=== PATIENT | female | born 1990 | race Caucasian/White ===

== ENCOUNTER 2016-10-24 18:31 | Emergency (ER) | payer OTHER ==
[~2016-10-24] VITALS: Ht 165.1 cm; Wt 86.0 kg
[2016-10-24 19:05] VITALS: Ht 165.1 cm; Wt 86.0 kg
[2016-10-24] MEDS ORDERED: HYDROCODONE/APAP (5/325) TAB PO ONE (20:00)
--- NOTE | 2016-10-24 20:13 | ERD ---
ER Documentation Chief Complaint Date/Time DATE: 10/24/16 TIME: 20:11 Chief Complaint headache since last night HPI This is a 26-year-old female presenting to the emergency room complaining of a frontal and temporal headache since last night. Patient states the pain is severe. Patient states that she has a history of headaches and 3 years ago she had imaging done and someone has told her that she has a benign cyst in her head. Patient presents asking for ct imaging since she has a history and she states that her aunt has brain cancer. Patient states that she has been under a lot of stress right lately she describes the pain as a tight band around her head. She denies any nausea, vomiting. She admits to having photophobia. She denies any other neuro deficits. Patient states that she took 1200 mg of ibuprofen at 1 PM and another 1200 mg of ibuprofen at 4 PM. ROS All systems reviewed and are negative except as per history of present illness. Medications Home Meds Active Scripts Acetaminophen* (Tylenol*) 325 Mg Tablet, 2 TAB PO Q6 Y for PAIN AND OR ELEVATED TEMP, #30 TAB Prov:CARLIE CARIAS PA-C 10/24/16 Allergies Allergies: Coded Allergies: No Known Drug Allergies (Verified Allergy, Unknown, 10/24/16) PMhx/Soc Medical and Surgical Hx: pt denies Surgical Hx History of Surgery: No Anesthesia Reaction: No Hx Neurological Disorder: No (benign cyst in the brain) Hx Respiratory Disorders: No Hx Cardiac Disorders: No Hx Psychiatric Problems: No Hx Miscellaneous Medical Probl: No Hx Alcohol Use: Yes (occasional) Hx Substance Use: No Hx Tobacco Use: No Physical Exam Vitals Vital Signs Date Time Temp Pulse Resp B/P Pulse Ox O2 Delivery O2 Flow Rate FiO2 10/24/16 19:05 97.6 75 20 119/65 99 Physical Exam GENERAL: well-developed/well-nourished, in no apparent distress, non-toxic appearing HENT: NC/AT, bilateral tympanic membrane is normal with good cone of light, nares patent, oropharynx clear without exudates EYES: Conjunctiva normal, PERRLA, EOMI, no nystagmus noted NECK: Supple, no lymphadenopathy PULM: CTA bilaterally, no rales, rhonchi, or wheezing heard CV: Normal S1S2, RRR, good capillary refill GI: Soft, non-distended, normal bowel sounds, non-tender BACK: No midline tenderness, no masses, No CVAT EXT: No clubbing, cyanosis, or edema NEURO: Alert and orientated to person, place, and time. CN II-IIX intact. Gait and coordination were normal. Hand newspaper correspondent strength were equal and within normal limits SKIN: Intact, normal turgor PSYCH: Normal mood and mentation, patient denied SI Results 24 hrs Laboratory Tests Test 10/24/16 20:59 Bedside Urine Blood Trace-intact Bedside Urine Glucose (UA) Negative Bedside Urine Ketones (LAB) Trace Bedside Urine Leukocyte Esterase (L Negative Bedside Urine Nitrite (LAB) Negative Bedside Urine Protein (LAB) Negative Bedside Urine pH (LAB) 6.0 Current Medications Medications (Trade) Dose Ordered Sig/Teresa Route PRN Reason Start Time Stop Time Status Last Admin Dose Admin Acetaminophen/ Hydrocodone Bitart (Flanagan (5/325)) 1 tab ONCE ONCE PO 10/24/16 20:00 10/24/16 20:01 DC 10/24/16 20:44 Procedures/MDM This is a 26-year-old female presenting to the emergency room complaining of a frontal and temporal headache since last night. Patient states the pain is severe. Patient states that she has a history of headaches and 3 years ago she had imaging done and someone has told her that she has a benign cyst in her head. Patient presents asking for ct imaging since she has a history and she states that her aunt has brain cancer. Patient states that she has been under a lot of stress right lately she describes the pain as a tight band around her head. This is most likely a tension headache however due to her history and patient's request of a CT, a CT of the head was done. I discussed the risks and the benefits, I discussed the patient had a normal neurological exam and I highly doubt any acute emergent pathology however she insisted on getting a CT of the head. CT of the head: 1. High attenuation nodule in the midline, likely in the anterior portion of the third ventricle consistent with a colloid cyst. Correlation with MRI should be considered. 2. No hydrocephalus. 3. Otherwise unremarkable noncontrast CT scan of the brain. Dr. Sykes the radiologist called me regarding this patient and suggested for me to do an MRI today of the head, I have discussed this case with my supervising physician Dr. Read who stated that it was okay to do an MRI head. Non-contrast MRI of the head was done and radiologist stated: 1. 8 mm AP by 6 mm transverse by 6 mm in superior inferior dimension anterior third ventricular proteinaceous nodule compatible with colloid cyst. Recommend follow-up MR imaging with contrast to further evaluate. 2. No evidence for acute intracranial infarcts, hemorrhage, or hydrocephalous. I have low suspicion for subarachnoid hemorrhage, meningitis, stroke.Patient was given 5/325mg Flanagan with some improvement. I have given patient a lengthy discussion to not take more than the ibuprofen dose. A prescription for Tylenol was provided. Discussed to follow-up with neurologist tomorrow. Discussed return the ER for any worsening signs or symptoms. Patient understands and agrees with this plan Departure Diagnosis: Primary Impression: Colloid cyst of brain Additional Impression: Headache Headache type: tension-type Headache chronicity pattern: acute headache Intractability: intractable Qualified Code: G44.201 - Acute intractable tension-type headache Condition: Stable CARLIE CARIAS PA-C Oct 24, 2016 20:13
--- NOTE | 2016-10-24 20:38 | RADRPT ---
PROCEDURE: CT Brain without contrast. CLINICAL INDICATION: Intermittent headache. TECHNIQUE: A CT of the brain without contrast was performed utilizing axial sections from the skul l base through the vertex. The patient was scanned without intravenous contrast enhancement. Sagitta l and coronal reformatted images were obtained using the data from the axial images. Total exam DLP is 720.23 mGy-cm. CTDIvol is 44.93 mGy. One or more of the following dose reduction techniques we re used: Automated exposure control, adjustment of the mA and/or kV according to patient size, use o f iterative reconstruction technique. COMPARISON: None available FINDINGS: There is normal kumar-white matter differentiation. There is a high attenuation 0.8 x 0.8 cm nodule in the midline, likely in the anterior portion of th e third ventricle. The ventricles and cisterns are otherwise normal. There is no hydrocephalus. Ther e is no other intracranial space occupying lesion. There is no intracranial hemorrhage. There is no skull fracture or lytic lesion. IMPRESSION: 1. High attenuation nodule in the midline, likely in the anterior portion of the third ventricle co nsistent with a colloid cyst. Correlation with MRI should be considered. 2. No hydrocephalus. 3. Otherwise unremarkable noncontrast CT scan of the brain. Call report: A call report of the findings was made to CARLIE CARIAS on 10/24/2016 at 2030 hour s. RPTAT: QQ .Alex Sykes MD, Date Time Electronically viewed and signed by .Alex Sykes MD, on 10/24/2016 20:38 .R/
[2016-10-24 20:57] LABS: URINE BLOOD (Dip) POC Trace-intact (NEGATIVE)
[2016-10-24] MEDS ORDERED: ACET325T33 PO (20:58)
[2016-10-24] MEDS ORDERED: IBUP800T25 PO (20:58)
--- NOTE | 2016-10-24 21:58 | RADRPT ---
PROCEDURE: MRI Brain without contrast. CLINICAL INDICATION: Headaches TECHNIQUE: An MRI of the brain was performed on a high resolution hi-definition MRI scanner utiliz ing the following sequences: Sagittal and axial T1 weighted, axial T2 weighted, axial T2 FLAIR axial diffusion weighted with ADC mapping, and coronal GRE appear COMPARISON: CT brain 10/24/2016 FINDINGS: Again noted is the anterior third ventricular intermediate signal intensity nodule on T1 and low to intermediate signal intensity on T2 sequences. This measures 8 mm AP by 6 mm transverse by 6 mm in superior inferior dimensions. This is most compatible with a proteinaceous colloid cyst. Follow-up brain MRI with contrast is recommended in the future to further evaluate. No evidence for hydrocep halus is present. The ventricles are of normal size and shape.No diffusion weighted abnormalities a re seen to suggest the presence of acute ischemia or recent infarct. No hypointense signal abnormal ities are seen on the GRE images to suggest the presence of blood degradation products. Normal flow voids are visible in the proximal intracranial arteries and dural sinuses, indicating patency. The scalp and calvarium are normal. The paranasal sinuses, orbits, and bilateral mastoid air cells a re normal. No extra-axial fluid collections are present. The ventricles and sulci are normal in siz e and configuration. No evidence of intracranial hemorrhage, mass effect or midline shift is present . IMPRESSION: 1. 8 mm AP by 6 mm transverse by 6 mm in superior inferior dimension anterior third ventricular pro teinaceous nodule compatible with colloid cyst. Recommend follow-up MR imaging with contrast to fur ther evaluate. 2. No evidence for acute intracranial infarcts, hemorrhage, or hydrocephalous. A returned call request was made to ARETHA Early PA-C at number provied [phone] 10/24/19 17 9:57:03 PM following the completion of the examination by the undersigned. RPTAT: HDC .Jo Fernandez MD, Date Time Electronically viewed and signed by .Jo Fernandez MD, MD on 10/24/2016 21:58 .C/
== END 2016-10-24 22:32 | disposition home or self-care (01) ==
LOC: FTE 18:31
DX: G93.0 Cerebral cysts (principal)
CPT/HCPCS: 70450; 70551; 81003; Z7502; Z7610

== ENCOUNTER 2017-11-21 14:32 | Emergency (ER) | END 2017-11-21 16:51 | disposition left against medical advice (07) ==

== ENCOUNTER 2018-05-17 15:08 | Emergency (ER) | END 2018-05-17 17:44 | disposition left against medical advice (07) ==

== ENCOUNTER 2018-06-06 05:49 | Emergency (ER) | END 2018-06-06 08:52 | disposition home or self-care (01) ==